=== PATIENT | male | born 1940 | race Caucasian/White ===

== ENCOUNTER → 2019-03-16 | Outpatient (CLI) | payer MEDICARE, OTHER | LOC: CARD 13:26 | PROVIDERS: ATTEND Family Medicine | DX: I20.0 Unstable angina (principal); I08.1 Rheumatic disorders of both mitral and tricuspid valves | CPT/HCPCS: 93306 ==

== ENCOUNTER → 2019-05-09 | Outpatient (CLI) | payer MEDICARE, OTHER ==
--- NOTE | 2019-05-09 15:37 | Diagnostic Imaging Report ---
EXAMINATION: Left ribs, 2-3 views. HISTORY: Fall. COMPARISON: No comparison is available. FINDINGS: The left subclavian pacer defibrillator is present. The heart size is normal. No pleural effusion or pneumothorax. There is a fracture of the left 7th rib which appears to be acute. There may be a left 8th rib fracture as well. IMPRESSION: Left 7th and and possible left 8th rib fractures. Dictated by: Dictated on workstation # [id number]
== END ==
LOC: RAD FS 15:16
PROVIDERS: ATTEND Nurse Practitioner Family
DX: S22.32XA Fracture of one rib, left side, initial encounter for closed fracture (principal); W19.XXXA Unspecified fall, initial encounter
CPT/HCPCS: 71100